=== PATIENT | male | born 1990 | race Caucasian/White ===

== ENCOUNTER 2020-11-10 09:47 | Inpatient (IN) | payer BC ==
[~2020-11-10] VITALS: Ht 182.9 cm; Wt 95.3 kg
[2020-11-10] MEDS ORDERED: PEPCID40 MG PO (10:15)
[2020-11-10 10:52] LABS: BASOPHILS 0.2 % (0-2); EOSINOPHILS 0.5 % (0-7); HEMATOCRIT 49.2 % (42.0-54.0); HEMOGLOBIN 17.2 g/dL (13.5-17.5); LYMPHOCYTES 6.1 % (15-50); MCH 31.5 pg (26.0-34.0); MCHC 34.9 g/dL (31.0-37.0); MCV 90.5 fL (80.0-100.0); MEAN PLATELET VOLUME 8.7 fL (7.4-10.4); MONOCYTES 7.7 % (2-11); NEUTROPHILS 85.5 % (40-80); PLATELET COUNT 218 10x3/uL (130-400); RBC 5.44 10x6/uL (4.20-6.10); RDW 12.6 % (11.5-14.5); WBC 15.5 10x3/uL (4.8-10.8)
[2020-11-10 10:57] LABS: CALC OSMOLALITY 272 mosm/kg (275-300); CARBON DIOXIDE 26.4 mmol/L (21.0-32.0); CHLORIDE - SERUM 102 mmol/L (98-107); GLUCOSE 113 mg/dL (74-106); SODIUM 136 mmol/L (136-145); UREA NITROGEN 12 mg/dL (7-18); eGFR NON AFRICAN AMERICAN > 90 mL/min (90-120)
[2020-11-10 11:04] LABS: ALBUMIN 4.2 g/dL (3.4-5.0); ALKALINE PHOSPHATASE 84 U/L (30-120); ALT (SGPT) 92 U/L (10-68); BILIRUBIN - TOTAL 0.94 mg/dL (0.2-1.3); PROTEIN - SERUM 7.9 g/dL (6.4-8.2)
--- NOTE | 2020-11-10 18:35 | NUR ---
I have reviewed this patient and I concur with the Shift Assessment completed by the Licensed Practical Nurse today this shift.
--- NOTE | 2020-11-10 18:46 | NUR ---
TO ROOM FROM ER. SITUATED COMFORTABLY. VISITOR AT BEDSIDE. ORIENTED TO ROOM AND UNIT. DENIES FURTHER NEEDS. CL WITHIN REACH. WILL CONTINUE POC
[2020-11-10 20:00] VITALS: BP 112/58
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
[2020-11-11 00:01] VITALS: BP 132/80; BMI 28.5
[2020-11-11 00:05] VITALS: BP 128/62
[2020-11-11 05:47] LABS: BASOPHILS 0.6 % (0-2); EOSINOPHILS 2.1 % (0-7); HEMATOCRIT 43.3 % (42.0-54.0); HEMOGLOBIN 15.1 g/dL (13.5-17.5); MCH 31.7 pg (26.0-34.0); MCHC 34.8 g/dL (31.0-37.0); MEAN PLATELET VOLUME 9.2 fL (7.4-10.4); MONOCYTES 9.2 % (2-11); NEUTROPHILS 79.1 % (40-80); PLATELET COUNT 185 10x3/uL (130-400); RBC 4.75 10x6/uL (4.20-6.10); RDW 12.7 % (11.5-14.5)
[2020-11-11 06:10] LABS: ALBUMIN 3.3 g/dL (3.4-5.0); ANION GAP 11.5 mmol/L (8-16); BILIRUBIN - TOTAL 1.13 mg/dL (0.2-1.3); CALCIUM 8.2 mg/dL (8.5-10.1); CARBON DIOXIDE 28.1 mmol/L (21.0-32.0); MAGNESIUM - SERUM 2.2 mg/dL (1.8-2.4); PHOSPHOROUS 3.7 mg/dL (2.5-4.9); POTASSIUM - SERUM 4.6 mmol/L (3.5-5.1); PROTEIN - SERUM 6.8 g/dL (6.4-8.2)
[2020-11-11 06:11] LABS: CREATININE - SERUM 1.3 mg/dL (0.6-1.3)
--- NOTE | 2020-11-11 08:00 | NUR ---
LAYING IN BED WITH EYES OPEN, ALERT AND ORIENTED, AT THE BEDSIDE. REPORTS PAIN 6/10, ADMINISTERED TORADOL PER DRS ORDERS. IV LOCATED TO RIGHT FA CURRENTLY RUNNING NS @ 100ML. DENIES OTHER NEEDS, NO CURRENT S/S OF DISTRESS, WILL CONT TO MONITOR.
[2020-11-11 09:17] VITALS: BP 93/57
[2020-11-11 11:49] LABS: UDS - AMPHET NEGATIVE QUAL (NEGATIVE); UDS - BARB NEGATIVE QUAL (NEGATIVE); UDS - BENZO NEGATIVE QUAL (NEGATIVE); UDS - COCAINE NEGATIVE QUAL (NEGATIVE); UDS - OPIATE NEGATIVE QUAL (NEGATIVE); UDS - PCP NEGATIVE QUAL (NEGATIVE); UDS - THC NEGATIVE QUAL (NEGATIVE)
[2020-11-11 12:48] VITALS: BP 131/69
[2020-11-11 14:28] VITALS: Ht 182.9 cm; Wt 95.3 kg
[2020-11-11 17:01] VITALS: BP 105/55
[2020-11-11 20:00] VITALS: BP 144/75
[2020-11-12 05:52] LABS: BASOPHILS 0.4 % (0-2); HEMATOCRIT 43.5 % (42.0-54.0); HEMOGLOBIN 14.8 g/dL (13.5-17.5); LYMPHOCYTES 20.3 % (15-50); MCH 31.6 pg (26.0-34.0); MCHC 34.2 g/dL (31.0-37.0); MCV 92.6 fL (80.0-100.0); MEAN PLATELET VOLUME 8.6 fL (7.4-10.4); MONOCYTES 12.5 % (2-11); NEUTROPHILS 62.8 % (40-80); PLATELET COUNT 170 10x3/uL (130-400); RBC 4.69 10x6/uL (4.20-6.10); RDW 12.8 % (11.5-14.5); WBC 7.3 10x3/uL (4.8-10.8)
[2020-11-12 06:18] LABS: ALBUMIN 3.1 g/dL (3.4-5.0); ANION GAP 11.7 mmol/L (8-16); BILIRUBIN - TOTAL 0.7 mg/dL (0.2-1.3); CALCIUM 8.3 mg/dL (8.5-10.1); CARBON DIOXIDE 26.8 mmol/L (21.0-32.0); CREATININE - SERUM 1.3 mg/dL (0.6-1.3); MAGNESIUM - SERUM 2.2 mg/dL (1.8-2.4); PHOSPHOROUS 3.8 mg/dL (2.5-4.9); POTASSIUM - SERUM 4.5 mmol/L (3.5-5.1); PROTEIN - SERUM 6.6 g/dL (6.4-8.2)
[2020-11-12 08:37] VITALS: BP 115/57
[2020-11-12 16:49] VITALS: BP 118/64
[2020-11-12 20:59] VITALS: BP 163/77
[2020-11-13 03:51] VITALS: BP 110/70
[2020-11-13 06:33] LABS: BASOPHILS 0.6 % (0-2); EOSINOPHILS 3.6 % (0-7); HEMATOCRIT 45.1 % (42.0-54.0); HEMOGLOBIN 15.5 g/dL (13.5-17.5); MCH 31.6 pg (26.0-34.0); MCHC 34.3 g/dL (31.0-37.0); MCV 92.2 fL (80.0-100.0); MEAN PLATELET VOLUME 9.1 fL (7.4-10.4); MONOCYTES 11.1 % (2-11); NEUTROPHILS 63.7 % (40-80); RDW 12.8 % (11.5-14.5); WBC 6.6 10x3/uL (4.8-10.8)
[2020-11-13 06:48] LABS: PLATELET COUNT 210 10x3/uL (130-400)
[2020-11-13 06:50] LABS: ALBUMIN 3.4 g/dL (3.4-5.0); ALKALINE PHOSPHATASE 65 U/L (30-120); ALT (SGPT) 111 U/L (10-68); BILIRUBIN - TOTAL 0.73 mg/dL (0.2-1.3); CALC OSMOLALITY 283 mosm/kg (275-300); CALCIUM 8.6 mg/dL (8.5-10.1); CARBON DIOXIDE 26.4 mmol/L (21.0-32.0); CHLORIDE - SERUM 105 mmol/L (98-107); CREATININE - SERUM 1.2 mg/dL (0.6-1.3); GLUCOSE 92 mg/dL (74-106); MAGNESIUM - SERUM 2.2 mg/dL (1.8-2.4); POTASSIUM - SERUM 3.9 mmol/L (3.5-5.1); PROTEIN - SERUM 7.3 g/dL (6.4-8.2); SODIUM 143 mmol/L (136-145); eGFR NON AFRICAN AMERICAN 76 mL/min (90-120)
[2020-11-13 06:51] LABS: PHOSPHOROUS 4.9 mg/dL (2.5-4.9); UREA NITROGEN 11 mg/dL (7-18)
[2020-11-13 09:01] VITALS: BP 124/74
[2020-11-13] MEDS ORDERED: BACTRIM DS TAB1 EAC1 PO (09:53)
--- NOTE | 2020-11-13 14:18 | NUR ---
DISCHARGE INSTRUCTIONS REVIEWED WITH PT AND SPOUSE, ALL QUESTIONS ANSWERED, PT VERBALIZED UNDERSTANDING, IV REMOVED, TIP INTACT, PT IN STABLE CONDITION, LEFT AMBULATORY WITH NO SIGNS OF DISTRESS, ICE PACK PROVIDED FOR HOME
--- NOTE | 2020-11-16 18:50 | MORECARE ---
CASE MANAGEMENT DISCHARGE SUMMARY PATIENT: MURIEL REESE UNIT: [id number] ADM DATE: 11/10/20 AGE: 30 : 89 SEX: M ROOM/BED: D.221 AUTHOR: ARIE,DOC PHYSICIAN: REFERRING PHYSICIAN: VINNIE PANDYA MD DATE OF SERVICE: 11/16/20 Case Management Discharge Planning Summary DCP REVIEW SUMMARY ANTICIPATED D/C DATE: EXPECTED LOS : CASE STATUS: DCP Complete INITIAL REVIEW: 11/10/2020 INITIAL REVIEWER: Ana Tristan FINAL DISCHARGE DISPOSITION: : FINAL REVIEWER: FINAL REVIEW DATE: DCP [employer] Questions [employer]swers QUESTION: ANSWER : PATIENT: MURIEL REESE ENCOUNTER: [id number] MEDICAL RECORD#: [id number] ADMISSION DATE: 11/10/2020 DISCHARGE DATE: 11/13/2020 ATTENDING MD: VINNIE MCKEE : AGE: 30 MARITAL STATUS: M DC PLAN ID: [id number] FACILITY: [facility] PRINTED ON: 11/16/20 18:49 CT All edits/amendments must be made on the electronic document DICTATION DATE: 11/16/201848 [employer] SUPERVISOR: DM 11/16/201848 RPT#: [id number] DC DATE:11/13/20 STATUS: DIS IN [place] [address] [place] [address] END OF REPORT
== END 2020-11-13 14:20 | disposition home or self-care (01) | DRG 603 ==
LOC: D.ER 09:47 → D.EDHOLD 14:09 → D.MS 14:09
PROVIDERS: Family Medicine; ADMIT Emergency Medicine; ATTEND Emergency Medicine
DX: L03.115 Cellulitis of right lower limb (principal); K21.9 Gastro-esophageal reflux disease without esophagitis; Z72.0 Tobacco use; D72.829 Elevated white blood cell count, unspecified; R79.82 Elevated C-reactive protein (CRP)